=== PATIENT | female | born 1975 | race Two or more races ===

== ENCOUNTER → 2024-04-09 | Outpatient (CLI) | payer MEDICAID, SELFPAY ==
--- NOTE | 2024-04-09 07:30 | XR_ITS ---
Examination: CT right shoulder, without contrast. 2-D sagittal reconstructions. 2-D coronal reconstructions. 3-D reconstructions. Date and time of exam:April 09, 2024 0745 hours INDICATIONS: Right shoulder pain beginning 2 years ago CTDI: vol (mGy):9.54 DLP: (mGycm):204 Technique: Multiple 1.25 mm axial sections of the right shoulder without intravenous contrast have been obtained. 2-D sagittal and coronal reconstructions have been obtained. 3-D reconstructions have been obtained. Low dose protocols were performed. One or more of the following dose reduction techniques were used; automated exposure control, adjustment of the mA and/or KV according to patient size, use of iterative reconstruction technique. Findings: Mild osteopenia No shoulder fracture or dislocation No calcific tendinitis No significant arthritic change No AC joint separation IMPRESSION: No shoulder fracture or dislocation No significant arthritic change Consider MRI shoulder without contrast follow-up
== END | disposition home or self-care (01) ==
PROVIDERS: PCP Internal Medicine; Referring Provider Internal Medicine; Visit Provider Internal Medicine
DX: M85.811 Other specified disorders of bone density and structure, right shoulder (principal)
CPT/HCPCS: 73200

== ENCOUNTER → 2024-04-10 | Outpatient (CLI) | payer MEDICAID, SELFPAY ==
--- NOTE | 2024-04-10 09:20 | XR_ITS ---
Examination: Bone densitometry Date and time of exam:April 10, 2024 0928 hours INDICATIONS: 48-year-old female with vitamin D 3 years Technique: Lumbar spine and hip total bone mineralization values of an calculated. Peak reference and age match control results have been displayed. Findings: Lumbar spine total bone mineralization is0.985 gm/cm2. This is 0.6 standard deviations below peak reference. This is 0.1 standard deviations above age-matched controls. Hip total bone mineralization is 1.020 gm/cm2 This is 0.4 standard deviations above peak reference. This is 0.8 standard deviations above age-matched controls Impression: There is normal mineralization based on lumbar spine measurements. There is normal mineralization based on hip measurements
== END | disposition home or self-care (01) ==
LOC: CDIM 09:11
PROVIDERS: Referring Provider Internal Medicine; Visit Provider Internal Medicine
DX: M85.811 Other specified disorders of bone density and structure, right shoulder (principal)
CPT/HCPCS: 77080